=== PATIENT | male | born 1945 | race African-American/Black ===

== ENCOUNTER 2019-12-25 10:19 | Emergency (ER) | payer OTHER, MEDICARE ==
[2019-12-25 11:18] LABS: ABSOLUTE LYMPHOCYTES (AUTO) 1.4 10^3/uL (0.5-4.7); ABSOLUTE MONOCYTES (AUTO) 0.7 10^3/uL (0.1-1.4); ABSOLUTE NEUT (AUTO) 9.7 10^3/uL (1.7-8.2); BASOPHILS % (AUTO) 0.4 % (0-2); EOSINOPHILS % (AUTO) 0.2 % (0-6); HEMATOCRIT 37.3 % (37.9-51.0); HEMOGLOBIN 12.8 g/dL (13.5-17.0); LYMPHOCYTES % (AUTO) 11.6 % (13-45); MEAN CORPUSCULAR HEMOGLOBIN 32.1 pg (27.0-33.4); MEAN CORPUSCULAR HGB CONC 34.4 g/dL (32.0-36.0); MEAN CORPUSCULAR VOLUME 93 fl (80-97); MONOCYTES % (AUTO) 5.7 % (3-13); PLATELET COUNT 319 10^3/uL (150-450); SEGMENTED NEUTROPHILS % (AUTO) 82.1 % (42-78); TOTAL CELLS COUNTED % (AUTO) 100 %; WHITE BLOOD COUNT 11.8 10^3/uL (4.0-10.5)
[2019-12-25 11:24] LABS: INTERNATIONAL RATION (INR) 1.01; PROTHROMBIN TIME 13.3 SEC (11.4-15.4)
[2019-12-25 11:37] LABS: ALBUMIN 3.5 g/dL (3.5-5.0); ALKALINE PHOSPHATASE 267 U/L (38-126); ASPARTATE AMINO TRANSFERASE 86 U/L (17-59); BILIRUBIN,DIRECT 0.1 mg/dL (0.0-0.4); BILIRUBIN,TOTAL 0.6 mg/dL (0.2-1.3); BLOOD UREA NITROGEN 17 mg/dL (7-20); CALCIUM 8.9 mg/dL (8.4-10.2); CARBON DIOXIDE 32 mmol/L (22-30); CHLORIDE 100 mmol/L (98-107); GLUCOSE 96 mg/dL (75-110); POTASSIUM 4.7 mmol/L (3.6-5.0); TOTAL PROTEIN 6.4 g/dL (6.3-8.2)
--- NOTE | 2019-12-25 11:42 | ER Document Report ---
ED General - General Chief Complaint: Abdominal Pain Stated Complaint: ABDOMINAL PAIN Time Seen by Provider: 12/25/19 11:40 Primary Care Provider: SEAN CALVO MD [ACTIVE STAFF] - Follow up as needed MARY GRACE CASTELLANOS MD [Primary Care Provider] - Follow up tomorrow KLAUDIA CHARLES MD [ACTIVE STAFF] - Follow up as needed Mode of Arrival: Ambulatory TRAVEL OUTSIDE OF THE [place] IN LAST 30 DAYS: No - HPI Notes: 74-year-old male with a history of diabetes, hypokalemia, hypomagnesia with iron deficiency anemia presents to the ER via EMS for lower abdominal pain who recently underwent a small bowel obstruction with a colectomy, which resulted in an ileostomy x 2 weeks ago. His surgeon was Savannah Bartholomew MD at [facility]. He states that he was placed in [place] [facility] 2 days ago. Patient started this morning with abdominal pain. Denies any nausea vomiting, no fever chills, no chest pain shortness of breath. Patient does not require any oxygen. patient has decreased appetite and not drinking much. Family is concerned about dehydration. Denies black tarry stools no melena not vomiting any blood. Denies fevers, chills, chest pain,palpitations, shortness of breath, dyspnea, nausea, vomiting, diarrhea, , hematuria, speech changes, LH, dizziness, syncope, headaches, wheezing, ST, URI, neck pain, weakness, bladder dysfunction, saddle anesthesia, numbness or tingling in bilateral upper or lower extremities equally, muscle paralysis, weakness in bilateral upper or lower extremities equally or rash. - Related Data Allergies/Adverse Reactions: No Known Allergies Allergy (Unverified 12/25/19 16:11) Past Medical History - General Information source: Patient, Relative - Social History Smoking Status: Former Smoker Family History: Reviewed & Not Pertinent Patient has suicidal ideation: No Patient has homicidal ideation: No Review of Systems - Review of Systems Constitutional: See HPI EENT: No symptoms reported Cardiovascular: No symptoms reported Respiratory: No symptoms reported Gastrointestinal: See HPI Genitourinary: No symptoms reported Male Genitourinary: No symptoms reported Musculoskeletal: No symptoms reported Skin: No symptoms reported Hematologic/Lymphatic: No symptoms reported Neurological/Psychological: No symptoms reported Physical Exam - Vital signs Vitals: BP 90/78 L 12/25/19 10:26 - Notes Notes: PHYSICAL EXAMINATION:reviewed vital signs by RN GENERAL: Chronically ill malnourished child in no acute distress. HEAD: Atraumatic, normocephalic. EYES: Pupils equal round and reactive to light, extraocular movements intact, sclera anicteric, conjunctiva are normal. ENT: External ears without lesions; external auditory canals patent; TMs without erythema; landmarks clear and well visualized; no rhinorrhea; pharynx without erythema or lesions, no tonsillar hypertrophy, airway patent, mucous membranes pink and moist NECK: Normal range of motion, supple without lymphadenopathy LUNGS: Respiratory rate and effort are normal. There is normal chest excursion. No respiratory distress, no retractions, no stridor, no nasal flaring, no accessory muscle use. The lungs are clear to auscultation bilaterally, no wheezing, no rales, no rhonchi HEART: Sinus tachycardia, normal rhythm without murmurs. No rubs, no gallops, capillary refill less than 2 seconds, symmetric pulses ABDOMEN: Soft, nondistended abdomen, tenderness to left lower quadrant right lower quadrant with noted healing surgical scar from umbilicus to suprapubic area without any erythema induration or warmth to touch. Noted ileostomy to right lower quadrant. No guarding, no rebound. No masses appreciated. No palpable organomegly. no cva tenderness on palpation bilaterally. Musculoskeletal: Normal range of motion, no pitting or edema. No cyanosis. NEUROLOGICAL: Cranial nerves grossly intact. Normal speech, normal gait exam for age. Normal sensory, motor, and reflex exams. PSYCH: Normal mood, normal affect. SKIN: Warm, Dry, normal turgor, no rashes or lesions noted, no acute lesions noted. Course - Re-evaluation Re-evalutation: 12/25/19 12:13 Afebrile, slightly hypertensive with blood pressure 90/78 with a heart rate 105 pulse ox 100%. 1 L of fluids going. Pending labs. Family at bedside. Patient denies any chest pain shortness of breath, headache, neck pain. Patient is not on blood thinners, does have ecchymosis to left upper extremity which can be res ulted from multiple IV attempts by Radha De La Torre, blood draws etc. venous blood gas is normal. patient denies any history of cancer, leukemia, thrombocytopenia. EKG negative for STEMI, complaining of any chest pain or shortness of breath. patient received 2 L of fluid and is on IV hydration of 125 mL's per hour. Patient states he is hungry. Will do CT abdomen pelvis with IV and oral contrast. There was a delay in obtaining the CT due to patient not drinking any the contrast which is strongly recommended to the fact that he had a colectomy with a recent small bowel obstruction.1500-patient continued to drink contrast for upcoming CT scan. 1700, Dr. Mann, radiologist called to let me know that there is no evidence on CT of bowel obstruction or extravasation of oral contrast which would show a leakage with his colectomy. Patient remains afebrile. CBC negative for leukocytosis, occult guaiac from ileostomy did show to be positive. Consulted with Katelyn dye, supervising physician in the emergency room regarding pertinent laboratory, diagnostic and clinical findings at 1840. She advised to have patient continue his PPI or double it for the next 2 weeks and then taper down to prevent any duodenal ulcers, follow bland diet as much as he can tolerate and if any symptoms change return to the emergency room. CT of the abdomen and pelvis did not show any inflammation around the pancreas no inflammation or peripancreatic fluid collection and the pancreatic duct is not dilated, so to monitor the lipase outpatient. She felt that the occult guaiac could be from gastritis which she is on a PPI but will double the PPI for 2 weeks. Patient does not have any gross melena in ileostomy bag. she felt that he was appropriate for discharge with strict return precautions and instructions. Discussed with patient these findings and when to return to the emergency room with him as well as his sister and his cousin. After performing a Medical Screening Examination, I estimate there is LOW risk for ACUTE APPENDICITIS, BOWEL OBSTRUCTION, ACUTE CHOLECYSTITIS, PERFORATED DIVERTICULITIS, INCARCERATED HERNIA, PANCREATITIS, TESTICULAR TORSION or PERFORATED ULCER, thus I consider the discharge disposition reasonable. Also, there is no evidence or peritonitis, sepsis, or toxicity. I have reevaluated this patient multiple times and no significant life threatening changes are noted. The patient and I have discussed the diagnosis and risks, and we agree with discharging home with close follow-up with the understanding that symptoms and presentations can change. We also discussed returning to the Emergency Department immediately if new or worsening symptoms occur. We have discussed the symptoms which are most concerning (e.g., bloody stool, fever, changing or worsening pain, intractable vomiting - standard verbal up date) that necessitate immediate return. - Vital Signs Vital signs: Temp Pulse Resp BP Pulse Ox 21 H 108/89 H 98 12/25/19 16:01 12/25/19 16:00 12/25/19 16:01 - Laboratory Result Diagrams: 12/25/19 11:05 12/25/19 11:05 Laboratory results interpreted by me: 12/25/19 12/25/19 12/25/19 11:05 11:05 11:05 WBC 11.8 H RBC 4.00 L Hgb 12.8 L Hct 37.3 L RDW 17.0 H Lymph % (Auto) 11.6 L Absolute Neuts (auto) 9.7 H Seg Neutrophils % 82.1 H Sodium 136.3 L Carbon Dioxide 32 H Anion Gap 4 L Creatinine 0.39 L POC Glucose AST 86 H ALT 224 H Alkaline Phosphatase 267 H Lipase 552.0 H 12/25/19 11:28 WBC RBC Hgb Hct RDW Lymph % (Auto) Absolute Neuts (auto) Seg Neutrophils % Sodium Carbon Dioxide Anion Gap Creatinine POC Glucose 120 H AST ALT Alkaline Phosphatase Lipase Discharge - Discharge Clinical Impression: Dehydration, Lower abdominal pain, H/O colectomy, elevated lipase after surgery Condition: Good Disposition: HOME-SNF (ED ONLY) Additional Instructions: Protonix twice a day for 2 weeks. Follow a bland diet, avoid any spicy foods highly acidic foods at least for the next 2 weeks. Increase oral hydration, make sure you are drinking (8) 8 ounces of water daily to prevent dehydration. Your CT showed that you do not have any leakage from your colectomy. You do not have a white count. Your liver enzymes were a little elevated as well as her lipase however this can happen after having a major surgery such as you had 2 weeks ago. Please follow-up with your surgeon for reevaluation as well as your primary care provider. Advised to repeat labs within 1 week. if you experience any fevers, vomiting, weakness, chest pain shortness of breath worsening pain etc. please return immediately to the emergency room. Return immediately for any new or worsening symptoms. Follow up with primary care provider, call tomorrow to make followup appointment. Prescriptions: Pantoprazole Sodium 40 mg PO BID #28 tablet. Referrals: JASMIN,MARY GRACE V, MD [Primary Care Provider] - Follow up tomorrow KLAUDIA CHARLES MD [ACTIVE STAFF] - Follow up as needed SEAN CALVO MD [ACTIVE STAFF] - Follow up as needed
[2019-12-25] MEDS ORDERED: NORMAL SALINE 1000 ML 1,000 ML IV ONE ×2 (12:03→14:49)
[2019-12-25 12:30] LABS: ANION GAP 4 (5-19)
[2019-12-25 12:45] LABS: VENOUS BLOOD BASE EXCESS 2.9 mmol/L; VENOUS BLOOD HCO3 28.6 mmol/L (20-32); VENOUS BLOOD PCO2 48.2 mmHg (35-63); VENOUS BLOOD PH 7.39 (7.30-7.42)
--- NOTE | 2019-12-25 13:10 | EKG REPORT ---
SEVERITY:- ABNORMAL ECG - SINUS TACHYCARDIA RIGHT ATRIAL ABNORMALITY ST ELEVATION NONSPECIFIC : Confirmed by: Anoop Headley MD 25-Dec-2019 13:09:37
--- NOTE | 2019-12-25 13:21 | RADIOLOGY REPORT (SQ) ---
EXAM DESCRIPTION: CHEST SINGLE VIEW COMPLETED DATE/TIME: 12/25/2019 1:01 pm REASON FOR STUDY: s/p major surgery, r/o PNA COMPARISON: None. NUMBER OF VIEWS: One view. TECHNIQUE: Single frontal radiographic view of the chest acquired. LIMITATIONS: None. FINDINGS: LUNGS AND PLEURA: Mildly hyperinflated but clear. No pneumothorax or opacity. MEDIASTINUM AND HILAR STRUCTURES: No masses. Contour normal. HEART AND VASCULAR STRUCTURES: Heart normal in size. Normal vasculature. BONES: Mild scoliosis. HARDWARE: None in the chest. OTHER: No other significant finding. IMPRESSION: No acute cardiopulmonary disease suggested beyond mild hyperinflation which may reflect COPD. TECHNICAL DOCUMENTATION: JOB ID: [id number] 2010 [employer]- All Rights Reserved Reading location - IP/workstation name: [email or web address]
[2019-12-25] MEDS ORDERED: MORPHINE SULFATE 10 MG/ML INJ IV ONE (14:49)
[2019-12-25] MEDS ORDERED: ONDANSETRON HCL INJ/PF 4 MG/2 ML SDV IV ONE (14:50)
[2019-12-25] MEDS ORDERED: NORMAL SALINE 1000 ML 1,000 ML IV PRN (16:26)
--- NOTE | 2019-12-25 17:21 | RADIOLOGY REPORT (SQ) ---
EXAM DESCRIPTION: CT ABD/PELVIS WITH IV ORAL COMPLETED DATE/TIME: 12/25/2019 4:53 pm REASON FOR STUDY: lower abd pain, s/p sbo x 2 weeks ago COMPARISON: None. TECHNIQUE: CT scan of the abdomen and pelvis performed using helical scanning technique with dynamic intravenous contrast injection. Patient drank oral contrast. Images reviewed with lung, soft tissue , and bone windows. Reconstructed coronal and sagittal MPR images reviewed. Delayed images for evalua tion of the urinary system also acquired. All images stored on PACS. All CT scanners at this facility use dose modulation, iterative reconstruction, and/or weight based d osing when appropriate to reduce radiation dose to as low as reasonably achievable (ALARA). [facility]: Dose Right [facility]: CareDose [facility]: Dose Right [facility]: Teradose 4D [facility]: [employer] CONTRAST TYPE AND DOSE: contrast/concentration: Isovue 350.00 mg/ml; Total Contrast Delivered: 63.0 ml; Total Saline Delivered: 46.0 ml RENAL FUNCTION: Creatinine 0.4 RADIATION DOSE: CT Rad equipment meets quality standard of care and radiation dose reduction techniq ues were employed. CTDIvol: 4.8 - 5.5 mGy. DLP: 524 mGy-cm.. LIMITATIONS: None. FINDINGS: LOWER CHEST: Lung bases are clear. On lung windows, there is trace subdiaphragmatic free air under the right hemidiaphragm, likely residua from surgery within the last 2 weeks. LIVER: Normal size. No masses. No dilated ducts. SPLEEN: Normal size. No focal lesions. PANCREAS: No masses. No significant calcifications. No adjacent inflammation or peripancreatic fluid collections. Pancreatic duct not dilated. GALLBLADDER: No identified stones by CT criteria. No inflammatory changes to suggest cholecystitis. ADRENAL GLANDS: No significant masses or asymmetry. RIGHT KIDNEY AND URETER: No solid masses. No significant calcifications. No hydronephrosis or hyd roureter. LEFT KIDNEY AND URETER: No solid masses. No significant calcifications. No hydronephrosis or hydr oureter. AORTA AND VESSELS: No aneurysm. No dissection. Renal arteries, SMA, celiac without stenosis. RETROPERITONEUM: No retroperitoneal adenopathy, hemorrhage or masses. BOWEL AND PERITONEAL CAVITY: Patient drank oral contrast. There is no extravasation of oral contrast . No bowel obstruction. No free fluid. Patient is post subtotal colectomy with Jennifer's pouch and right lower quadrant colostomy. APPENDIX: Not identified. PELVIS: No mass. No free fluid. Normal bladder. ABDOMINAL WALL: No masses. No hernias. BONES: There is disc space narrowing and vertebral body endplate irregularity at L4-5 and L5-S1 likel y due to degenerative disc change. OTHER: No other significant finding. IMPRESSION: Trace amount of postoperative right subdiaphragmatic free air. No CT evidence of bowel obstruction or extravasation of oral contrast. Findings discussed with Sintia Olson in the emergency room. TECHNICAL DOCUMENTATION: JOB ID: [id number] Quality ID # [id number]: Final reports with documentation of one or more dose reduction techniques (e.g., Au tomated exposure control, adjustment of the mA and/or kV according to patient size, use of iterative reconstruction technique) 2010 [employer]- All Rights Reserved Reading location - IP/workstation name: [email or web address]
[2019-12-25 18:12] LABS: APPEARANCE,URINE CLEAR; BILIRUBIN,URINE NEGATIVE (NEGATIVE); COLOR,URINE YELLOW; GLUCOSE, URINE NEGATIVE (NEGATIVE); KETONES,URINE NEGATIVE (NEGATIVE); LEUKOCYTE ESTERASE,URINE NEGATIVE (NEGATIVE); NITRITE,URINE NEGATIVE (NEGATIVE); PROTEIN,URINE NEGATIVE (NEGATIVE); URINE SPECIFIC GRAVITY 1.023; UROBILINOGEN,URINE NEGATIVE mg/dL (<2.0)
[2019-12-25 19:03] VITALS: BP 108/89
[2019-12-26 07:37] LABS: HEPATITS B SURFACE ANTIGEN Negative (Negative)
[2019-12-26 13:18] LABS: HEPATITIS C VIRUS ANTIBODY <0.1 s/co ratio (0.0-0.9)
== END 2019-12-25 19:13 ==
LOC: ER 10:19
DX: R10.30 Lower abdominal pain, unspecified (principal); R10.814 Left lower quadrant abdominal tenderness; R10.813 Right lower quadrant abdominal tenderness; E86.0 Dehydration; R79.89 Other specified abnormal findings of blood chemistry; R63.0 Anorexia; I10 Essential (primary) hypertension; R19.5 Other fecal abnormalities; R00.0 Tachycardia, unspecified; Z90.49 Acquired absence of other specified parts of digestive tract; Z93.2 Ileostomy status; E11.9 Type 2 diabetes mellitus without complications; Z87.891 Personal history of nicotine dependence; Z87.19 Personal history of other diseases of the digestive system
CPT/HCPCS: 93005; 99285; 96361; 96374; 96375; 36415; 87040; 82962; 83605; 83690; 83735; 85025; 85610; 80053; 81001; 82803; 80074; 71045; 74177; 93010; J2270; J2405; J7030